=== PATIENT | male | born 1960 | race Caucasian/White ===

== ENCOUNTER 2018-12-08 18:20 | Emergency (ER) | payer BC, OTHER ==
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
[2018-12-08] MEDS ORDERED: HYDROCODONE/APAP 10/325 TAB ONE (19:12)
== END 2018-12-08 20:04 | disposition home or self-care (01) ==
LOC: ER 18:20
DX: T20.19XA Burn of first degree of multiple sites of head, face, and neck, initial encounter (principal); X08.8XXA Exposure to other specified smoke, fire and flames, initial encounter; Y93.9 Activity, unspecified; Y92.9 Unspecified place or not applicable; Z88.0 Allergy status to penicillin
CPT/HCPCS: 99283

== ENCOUNTER 2019-12-25 10:15 | Emergency (ER) | payer OTHER ==
[2019-12-25] MEDS ORDERED: NA CHLORIDE 0.9% 1,000 ML ONE (11:20)
[2019-12-25 11:22] LABS: Absolute Lymphocytes (CBC) 1.7 K/uL (0.7-4.9); Basophils % 0.3 % (0-1.3); Lymphocytes % 20.5 % (15.3-44.8); MPV 8.3 fL (7.6-11.3); RBC Red Blood Cell Count 4.72 M/uL (4.33-5.43)
--- NOTE | 2019-12-25 12:00 | RAD REPORT ---
EXAM DESCRIPTION: CT - Abdomen Pelvis W Contrast - 12/25/2019 11:35 am CLINICAL HISTORY: Abdominal pain COMPARISON: none. TECHNIQUE: Computed axial tomography of the abdomen pelvis was obtained. 100 cc Isovue-300 was admin istered intravenously. Oral contrast was not requested which limits evaluation of bowel. All CT scans are performed using dose optimization technique as appropriate and may include automated exposure control or mA/KV adjustment according to patient size. FINDINGS: Mild fatty liver Spleen, pancreas, adrenal and left kidney appear unremarkable. Mild mild malrotation right kidney Bladder is distended. Prostate gland is mildly enlarged There is no evidence of diverticulitis. Small umbilical hernia IMPRESSION: Bladder distention
[2019-12-25 12:26] LABS: Urine Blood 3+ (NEG); Urine Glucose TRACE (NEG); Urine Protein 2+ (NEG); Urine pH 6.5 (5.0-7.0)
[2019-12-25 12:34] LABS: Urine Bacteria 20-50 /HPF (NONE SEEN); Urine Culture Reflex Order REFLEXED; Urine RBC LOADED /HPF (NONE SEEN)
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
--- NOTE | 2019-12-25 13:09 | EDPHYS ---
Physician Documentation [facility] Name: Olu Ware Age: 59 yrs Sex: Male : 1960 Arrival Date: 12/25/2019 Time: 10:18 Bed 17 Private MD: ED Physician Meli Astudillo HPI: 12/24 13:49 This 59 yrs old Unknown Male presents to ER via Ambulatory with complaints of Urinary kb Problem - blood. 13:49 The patient presents with urinary symptoms, hematuria. Onset: The symptoms/episode kb began/occurred 3 week(s) ago. Modifying factors: The symptoms are alleviated by nothing, the symptoms are aggravated by nothing. Associated signs and symptoms: Pertinent positives: hematuria, Pertinent negatives: abdominal pain, constipation, diarrhea, dysuria, fever, nausea, vomiting. Severity of symptoms: At their worst the symptoms were moderate, in the emergency department the symptoms are unchanged. The patient has not experienced similar symptoms in the past. The patient has been recently seen by a physician:. Pt reports he had some cloudy, malodorous urine starting 3 weeks ago. Was diagnosed with a UTI and placed on a 5 day course of antibiotics. Urine started to clear, then he started noticing blood in urine. PCP put him on 14 day course of Cipro. He is on day 9 and symptoms seemed to be getting better until last night. Reports hematuria with clots and constant urge to urinate. Denies pain, fever. . Historical: - Allergies: 10:40 PENICILLINS; ca1 - Home Meds: 10:40 Glipizide Oral [Active]; metformin 750 mg Oral Tb24 1 tab twice a day [Active]; Cipro ca1 Oral [Active]; - PMHx: 10:40 Atrial Fib; Diabetes - NIDDM; Sleep Apnea; ca1 - PSHx: 10:40 None; ca1 - Immunization history:: Adult Immunizations up to date. - Social history:: Smoking status: Patient denies any tobacco usage or history of. ROS: 13:49 Constitutional: Negative for fever, chills, and weight loss, Cardiovascular: Negative kb for chest pain, palpitations, and edema, Respiratory: Negative for shortness of breath, cough, wheezing, and pleuritic chest pain, Abdomen/GI: Negative for abdominal pain, nausea, vomiting, diarrhea, and constipation, Back: Negative for injury and pain, MS/Extremity: Negative for injury and deformity, Skin: Negative for injury, rash, and discoloration, Neuro: Negative for headache, weakness, numbness, tingling, and seizure. 13:49 : Positive for hematuria. Exam: 13:49 Constitutional: This is a well developed, well nourished patient who is awake, alert, kb and in no acute distress. Head/Face: Normocephalic, atraumatic. Chest/axilla: Normal chest wall appearance and motion. Nontender with no deformity. No lesions are appreciated. Cardiovascular: Regular rate and rhythm with a normal S1 and S2. No gallops, murmurs, or rubs. Normal PMI, no JVD. No pulse deficits. Respiratory: Lungs have equal breath sounds bilaterally, clear to auscultation and percussion. No rales, rhonchi or wheezes noted. No increased work of breathing, no retractions or nasal flaring. Abdomen/GI: Soft, non-tender, with normal bowel sounds. No distension or tympany. No guarding or rebound. No evidence of tenderness throughout. Skin: Warm, dry with normal turgor. Normal color with no rashes, no lesions, and no evidence of cellulitis. MS/ Extremity: Pulses equal, no cyanosis. Neurovascular intact. Full, normal range of motion. Neuro: Awake and alert, GCS 15, oriented to person, place, time, and situation. Cranial nerves II-XII grossly intact. Motor strength 5/5 in all extremities. Sensory grossly intact. Cerebellar exam normal. Normal gait. Vital Signs: 10:35 BP 112 / 78; Pulse 84; Resp 16 S; Temp 97.5(TE); Pulse Ox 99% on R/A; Weight 94.8 kg ca1 (R); Height 5 ft. 11 in. (180.34 cm) (R); Pain 0/10; 11:50 BP 105 / 63; Pulse 70; Resp 16; Pulse Ox 96% ; bp 12:44 BP 107 / 69; Pulse 70; Resp 16; Pulse Ox 100% ; bp 13:40 BP 120 / 88; Pulse 72; Resp 16; Temp 97.5; Pulse Ox 99% ; bp 10:35 Body Mass Index 29.15 (94.80 kg, 180.34 cm) ca1 MDM: 10:50 Patient medically screened. kb 13:45 Data reviewed: vital signs, nurses notes. Data interpreted: Pulse oximetry: on room air kb is 99 %. Interpretation: normal. Counseling: I had a detailed discussion with the patient and/or guardian regarding: the historical points, exam findings, and any diagnostic results supporting the discharge/admit diagnosis, lab results, radiology results, the need for outpatient follow up, a urologist, to return to the emergency department if symptoms worsen or persist or if there are any questions or concerns that arise at home. ED course: Pt had 999+ PVR on bladder scan. Zavala placed and 1400ml tea colored urine drained. No clots or bright red blood noted. Discussed diagnostics and plan with pt. Pt agrees to leave zavala in and follow up with Dr Ibarra outpatient. . 12/24 10:42 Order name: Urine Microscopic Only; Complete Time: 12:37 kb 12/24 11:00 Order name: Urine Dipstick--Ancillary (enter results); Complete Time: 12:27 eb 12/24 11:01 Order name: Basic Metabolic Panel; Complete Time: 11:33 kb 12/24 11:01 Order name: CBC with Diff; Complete Time: 11:28 kb 12/24 12:01 Order name: CREATININE WHOLE BLOOD; Complete Time: 12:06 EDMS 12/24 12:38 Order name: Urine Culture EDMS 12/24 10:42 Order name: Urine Dipstick-Ancillary (obtain specimen); Complete Time: 11:00 kb 12/24 11:01 Order name: IV Saline Lock; Complete Time: 11:17 kb 12/24 11:01 Order name: Labs collected and sent; Complete Time: 11:17 kb 12/24 11:01 Order name: CT Abd/Pelvis - IV Contrast Only; Complete Time: 12:06 kb 12/24 12:06 Order name: Bladder Scanner: PVR; Complete Time: 12:33 kb 12/24 12:43 Order name: Zavala-Hematuria; Complete Time: 12:58 kb Administered Medications: 11:10 Drug: NS 0.9% 1000 ml Route: IV; Rate: 1000 ml; Site: left forearm; bp 13:41 Follow up: IV Status: Completed infusion; IV Intake: 1000ml bp 13:10 Drug: Rocephin 1 grams Route: IV; Rate: calculated rate; Site: left forearm; bp 13:41 Follow up: IV Status: Completed infusion; IV Intake: 20ml bp Disposition: 18:48 Co-signature as Attending Physician, Meli Astudillo MD. ma2 Disposition: 12/25/19 13:08 Discharged to Home. Impression: Urinary tract infection, site not specified, Retention of urine, Hematuria. - Condition is Stable. - Discharge Instructions: Hematuria, Adult, Urinary Tract Infection, Adult, [id number], Acute Urinary Retention, Male, [id number]. - Prescriptions for cefpodoxime 100 mg Oral Tablet - take 1 tablet by ORAL route every 12 hours for 10 days take with food; 20 tablet. - Medication Reconciliation Form, Thank You Letter, Antibiotic Education, Prescription Opioid Use form. - Follow up: Emergency Department; When: As needed; Reason: Worsening of condition. Follow up: Private Physician; When: 2 - 3 days; Reason: Recheck today's complaints, Continuance of care, Re-evaluation by your physician. Follow up: Ana Luisa Ibarra MD; When: 2 - 3 days; Reason: Recheck today's complaints, Continuance of care, Re-evaluation by your physician. Signatures: Dispatcher [employer] EDVanesa Recio, LEADITE HEATER-C LEADITE HEATER-Trey Mendiola RN RN Meli Mcginnis MD MD ma2 Lyssa Monreal RN RN ca1 Corrections: (The following items were deleted from the chart) 13:42 13:08 12/25/2019 13:08 Discharged to Home. Impression: Urinary tract infection, site bp not specified; Retention of urine; Hematuria. Condition is Stable. Forms are Medication Reconciliation Form, Thank You Letter, Antibiotic Education, Prescription Opioid Use. Follow up: Emergency Department; When: As needed; Reason: Worsening of condition. Follow up: Private Physician; When: 2 - 3 days; Reason: Recheck today's complaints, Continuance of care, Re-evaluation by your physician. Follow up: Ana Luisa Ibarra; When: 2 - 3 days; Reason: Recheck today's complaints, Continuance of care, Re-evaluation by your physician. kb
[2019-12-25] MEDS ORDERED: CEFTRIAXONE/SWI 1gm 1 GM/10 ML SYR ONE (13:13)
[2019-12-25 13:49] VITALS: TEMP 97.5
[2019-12-25 13:53] VITALS: BP 120/88; O2SAT 99
== END 2019-12-25 13:42 | disposition home or self-care (01) ==
LOC: ER 10:15
DX: N39.0 Urinary tract infection, site not specified (principal); R33.9 Retention of urine, unspecified; E11.9 Type 2 diabetes mellitus without complications; I48.91 Unspecified atrial fibrillation; Z88.0 Allergy status to penicillin
CPT/HCPCS: 96365; 96361; 85025; 87086; 80048; 36415; 82565; 74177; 51702; 99284; Q9967; J0696; J7030; 81003; 81015; 87088

== ENCOUNTER 2020-02-02 11:25 | Emergency (ER) | payer OTHER ==
--- OUTSIDE RECORDS SUMMARY | 2020-02-02 13:04 | XMS REPORT ---
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 Assessment Incomplete bladder emptying R33.9 Active Medications Medication Code Code Instructions Start End Status Dosage System Date Date Atorvastatin [facility] 28088696843 40 MG Orally Active 1 tablet Calcium Once a day Vascepa [facility] 88222194205 1 GM Orally Active 2 capsul es Twice a day with meals Glimepiride ND 95921687767 4 MG Orally Active 1 ta blet Once a day with breakfast or the first main meal of the day Cefpodoxime ND 26722626530 100 MG Orally Active 2 tablets Proxetil Twice a day with food Matzim LA [facility] 09576692169 180 MG Orally Active 1 ta blet Once a day MetFORMIN HCl [facility] 52847132739 750 MG Orally Active 1 tablet ER Once a day with evening meal Trulicity [facility] 24645810187 1.5 MG/0.5ML Active as di rected Subcutaneous Fenofibrate ND 74040474858 145 MG Orally Active 1 tablet Once a day with food Cosentyx [facility] 80216773847 150 MG/ML Active 1 ml Subcutaneous Amiodarone HCl ND 02707695760 100 MG Orally Active 1 tablet Once a day Results No Known Results Summary Purpose eClinicalWorks Submission
--- OUTSIDE RECORDS SUMMARY | 2020-02-02 13:04 | XMS REPORT | Continuity of Care Document ---
:1960 Author Organization [facility] t Address [address] [place] [address] Care Team Providers Name Role Phone Unavailable Unavailable Unavailable Problems Condition Condition Condition Status Onset Resolution Last Treating Co mments Source Name Details Category Date Date Treatment Clinician Date BPH with BPH with Problem Active [facility] - n/lower n/lower [facility] urinary urinary l tract tract Outpati symptoms symptoms ent Clinics Allergies, Adverse Reactions, Alerts Allergy Allergy Status Severity Reaction(s) Onset Inactive Treating Comm ents Source Name Type Date Date Clinician PCN Adverse Active Info Not [facility] Reaction Available [facility] Medications Ordered Filled Start Stop Current Ordering Indication Dosage Frequency Signature Comments Components Source Medication Medication Date Date Medication? Clinician (SIG) Name Name Bactrim DS Bactrim DS 2019- Yes Luz [address] [facility] 01-25 [facility] Procedures This patient has no known procedures. Encounters Start End Encounter Admission Attending Care Care Encounter Source Date/Time Date/Time Type Type Clinicians Facility Department ID 2020-01-26 2020-01-26 [facility] [id number] [facility] 15:27:00 15:27:00 t Specialty/U Marge kes - Specialty ro[facility]y [facility]Urology Clinic l Clinic Outpati ent Clinics 2020-01-18 2020-01-18 [facility] [id number] [facility] 13:32:00 13:32:00 t Specialty/U Marge kes - Specialty ro[facility]y [facility] /Urology Clinic l Clinic Outpati ent Clinics 2020-01-14 2020-01-14 Outpatient [facility] [id number] [facility] 14:30:00 14:30:00 t Specialty/U Marge kes - Special[facility]y [facility] 2020-01-11 2020-01-11 Outpatient [facility] [id number] [facility] 14:45:00 14:45:00 t Specialty/U Marge kes - Specialty rology [facility] /Urology Clinic l Clinic Outpati ent Clinics 2019-12-31 2019-12-31 Outpatient [facility] [id number] [facility] 09:15:00 09:15:00 t Specialty/U Marge kes - [facility] Results This patient has no known results.
--- OUTSIDE RECORDS SUMMARY | 2020-02-02 13:04 | XMS REPORT ---
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 Medications Medication Code Code Instructions Start End Status Dosage System Date Date Amiodarone HCl [facility] 48301372441 100 MG Orally Active 1 tablet Once a day MetFORMIN HCl [facility] 67858329070 750 MG Orally Active 1 tablet ER Once a day with evening meal Trulicity [facility] 60326244131 1.5 MG/0.5ML Active as di rected Subcutaneous Cosentyx [facility] 37978575823 150 MG/ML Active 1 ml Subcutaneous Atorvastatin [facility] 49273793182 40 MG Orally Active 1 tablet Calcium Once a day Glimepiride ND 54615556828 4 MG Orally Active 1 ta blet Once a day with breakfast or the first main meal of the day Vascepa [facility] 12000442624 1 GM Orally Active 2 capsul es Twice a day with meals Fenofibrate ND 94878800583 145 MG Orally Active 1 tablet Once a day with food Cefpodoxime ND 99619552831 100 MG Orally Active 2 tablets Proxetil Twice a day with food Matzim LA [facility] 87684925346 180 MG Orally Active 1 ta blet Once a day Results No Known Results Summary Purpose eClinicalWorks Submission
--- OUTSIDE RECORDS SUMMARY | 2020-02-02 13:05 | XMS REPORT ---
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
--- OUTSIDE RECORDS SUMMARY | 2020-02-02 13:05 | XMS REPORT ---
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
--- OUTSIDE RECORDS SUMMARY | 2020-02-02 13:05 | XMS REPORT ---
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 Medications Medication Code Code Instructions Start End Status Dosage System Date Date MetFORMIN HCl [facility] 37095682519 750 MG Orally Active 1 tablet ER Once a day with evening meal Amiodarone HCl [facility] 46003614142 100 MG Orally Active 1 tablet Once a day Glimepiride ND 58134481174 4 MG Orally Active 1 ta blet Once a day with breakfast or the first main meal of the day Cefpodoxime ND 79698092451 100 MG Orally Active 2 tablets Proxetil Twice a day with food Atorvastatin ND 85671199735 40 MG Orally Active 1 tablet Calcium Once a day Vascepa [facility] 84910394645 1 GM Orally Active 2 capsul es Twice a day with meals Trulicity [facility] 81331218060 1.5 MG/0.5ML Active as di rected Subcutaneous Matzim LA [facility] 12308314151 180 MG Orally Active 1 ta blet Once a day Cosentyx ND 99869819276 150 MG/ML Active 1 ml Subcutaneous Fenofibrate ND 38068493559 145 MG Orally Active 1 tablet Once a day with food Results No Known Results Summary Purpose eClinicalWorks Submission
[2020-02-02] MEDS ORDERED: ONDANSETRON 4 MG/2 ML VIAL ONE (13:32)
[2020-02-02] MEDS ORDERED: DICYCLOMINE HCL 10 MG CAP ONE (13:33)
[2020-02-02] MEDS ORDERED: NA CHLORIDE 0.9% 1,000 ML ONE (13:33)
[2020-02-02 13:46] LABS: Absolute Lymphocytes (CBC) 1.1 K/uL (0.7-4.9); Hematocrit 39.9 % (39.6-49.0); Lymphocytes % 11.6 % (15.3-44.8); MPV 7.4 fL (7.6-11.3); RBC Red Blood Cell Count 4.46 M/uL (4.33-5.43)
[2020-02-02 14:03] LABS: ALT/SGPT 22 U/L (12-78); AST/SGOT 20 U/L (15-37); Albumin 2.6 g/dL (3.4-5.0); Alkaline Phosphatase 60 U/L (45-117); BUN Blood Urea Nitrogen 10 mg/dL (7-18); Bicarbonate 30 mmol/L (21-32); Bilirubin Direct 0.1 mg/dL (0-0.2); Bilirubin Total 0.4 mg/dL (0.2-1.0); Glucose Level 261 mg/dL (74-106); Lipase 107 U/L (73-393); Potassium 4.1 mmol/L (3.5-5.1); Protein, Total 7.9 g/dL (6.4-8.2); Sodium Level 140 mmol/L (136-145)
--- NOTE | 2020-02-02 14:27 | RAD REPORT ---
EXAM DESCRIPTION: CTAbdomen Pelvis W Contrast - 02/02/2020 2:17 pm CLINICAL HISTORY: Abdominal pain. ABD PAIN COMPARISON: Abdomen Pelvis W Contrast dated 12/25/2019 TECHNIQUE: Biphasic CT imaging of the abdomen and pelvis was performed with 100 ml non-ionic IV cont rast. All CT scans are performed using dose optimization technique as appropriate and may include automated exposure control or mA/KV adjustment according to patient size. FINDINGS: Extensive interstitial opacities in the lung bases are present compatible with viral pneum onitis.Findings are most severe in the right lower lobe. The liver, spleen, pancreas, adrenal glands are within normal limits. No renal hydronephrosis or ston e. No bowel obstruction, free air, free fluid or abscess. The appendix is normal. No evidence of signi ficant lymphadenopathy. No suspicious bony findings. IMPRESSION: Extensive interstitial infiltrate in both lung bases, greater on the right, most compati ble with COVID-19 infection. No acute intra-abdominal or pelvic finding.
[2020-02-02 14:29] LABS: Urine Blood NEGATIVE (NEG); Urine Glucose 2+ (NEG); Urine Protein 2+ (NEG); Urine pH 5.5 (5.0-7.0)
[2020-02-02] MEDS ORDERED: dexAMETHasone 10 MG/ML VIAL ONE (15:22)
--- NOTE | 2020-02-02 15:24 | ER ---
Nurse's Notes [facility] Name: Olu Ware Age: 59 yrs Sex: Male : 1960 Arrival Date: 02/02/2020 Time: 11:30 Bed 26 Private MD: Diagnosis: Vomiting;Diarrhea, unspecified;COVID-19 Presentation: 02/01 11:55 Chief complaint: Patient states: Covid-19 positive. N/V/D since last week, worse past ca1 few days. Cough x 2 days. Denies SOB. 1st day fever-free yesterday. Coronavirus screen: Patient reports a cough. Patient denies shortness of breath or difficulty breathing. Patient reports a measured and/or subjective temperature greater than 100.4F. Patient denies travel on a cruise ship or to a country the [facility] currently lists as an affected area. Patient reports contact with known and/or suspected case of COVID-19. Patient was placed back in the lobby due to no available rooms at this time. Patient was instructed to always wear their mask and to isolate themselves as much as possible from others in the lobby. co-workers. Ebola Screen: Patient negative for fever greater than or equal to 101.5 degrees Fahrenheit, and additional compatible Ebola Virus Disease symptoms Patient denies exposure to infectious person. Patient denies travel to an Ebola-affected area in the 21 days before illness onset. No symptoms or risks identified at this time. Initial Sepsis Screen: Does the patient meet any 2 criteria? No. Patient's initial sepsis screen is negative. Does the patient have a suspected source of infection? No. Patient's initial sepsis screen is negative. Risk Assessment: Do you want to hurt yourself or someone else? Patient reports no desire to harm self or others. Onset of symptoms was February 02, 2020. 11:55 Method Of Arrival: Ambulatory ca1 11:55 Acuity: MACHO 3 ca1 Historical: - Allergies: 11:59 PENICILLINS; ca1 - Home Meds: 11:59 metformin 750 mg Oral Tb24 1 tab twice a day [Active]; Glipizide Oral [Active]; ca1 Amiodarone Oral [Active]; - PMHx: 11:59 Atrial Fib; Diabetes - NIDDM; Sleep Apnea; ca1 - PSHx: 11:59 None; ca1 - Immunization history:: Adult Immunizations up to date. - Social history:: Smoking status: Patient/guardian denies using tobacco, the patient reports quitting approximately 10 years ago. Screenin:03 Abuse screen: Denies threats or abuse. Nutritional screening: No deficits noted. em Tuberculosis screening: No symptoms or risk factors identified. Fall Risk None identified. Assessment: 13:00 General: Appears in no apparent distress. uncomfortable, ill, well groomed, well em developed, well nourished, Behavior is calm, cooperative, appropriate for age, Reports fever for > 3 days, fatigue for. Pain: Complains of pain in abdomen and body aches. Neuro: Level of Consciousness is awake, alert, obeys commands, Oriented to person, place, time, situation, Appropriate for age. Cardiovascular: Capillary refill < 3 seconds Patient's skin is warm and dry. Respiratory: Airway is patent Respiratory effort is even, unlabored, Respiratory pattern is regular, symmetrical. GI: Abdomen is flat, Reports diarrhea, nausea, vomiting. : Reports reports urinary retention for past 2-3 weeks, pt straight caths self q 5 hours. Derm: Skin is intact, is healthy with good turgor, Skin is pink, warm \T\ dry. Musculoskeletal: Capillary refill < 3 seconds, Range of motion: intact in all extremities. 14:00 Reassessment: Patient appears in no apparent distress at this time. Patient and/or em family updated on plan of care and expected duration. Pain level reassessed. Patient is alert, oriented x 3, equal unlabored respirations, skin warm/dry/pink. 15:00 Reassessment: Patient appears in no apparent distress at this time. Patient and/or em family updated on plan of care and expected duration. Pain level reassessed. Patient is alert, oriented x 3, equal unlabored respirations, skin warm/dry/pink. 16:01 Reassessment: Patient appears in no apparent distress at this time. Patient and/or em family updated on plan of care and expected duration. Pain level reassessed. Patient is alert, oriented x 3, equal unlabored respirations, skin warm/dry/pink. Patient states feeling better. Patient states symptoms have improved. Vital Signs: 11:55 BP 129 / 83; Pulse 92; Resp 18 S; Temp 97.4(TE); Pulse Ox 92% on R/A; Weight 95.25 kg ca1 (R); Height 5 ft. 11 in. (180.34 cm) (R); 14:58 BP 141 / 86; Pulse 75; Resp 20; Temp 98.8; Pulse Ox 92% on R/A; em 16:01 BP 129 / 73; Pulse 69; Resp 20; Pulse Ox 93% on R/A; em 11:55 Body Mass Index 29.29 (95.25 kg, 180.34 cm) ca1 ED Course: 11:30 Patient arrived in ED. fj1 11:58 Triage completed. ca1 11:59 Arm band placed on right wrist. ca1 12:59 Vanesa Simpson FNP-C is PHCP. kb 12:59 Kal Costello MD is Attending Physician. kb 13:03 Duran Barnett, KRYSTIAN is Primary Nurse. em 13:03 Patient has correct armband on for positive identification. Bed in low position. Call em light in reach. Side rails up X2. 14:17 CT Abd/Pelvis - IV Contrast Only In Process Unspecified. EDMS 16:00 No provider procedures requiring assistance completed. IV discontinued, intact, em bleeding controlled, No redness/swelling at site. Pressure dressing applied. Administered Medications: 13:35 Drug: Zofran (Ondansetron) 4 mg Route: IVP; Site: right forearm; em 13:48 Follow up: Response: No adverse reaction; Marked relief of symptoms; Nausea is decreasedem 13:39 Drug: NS 0.9% 1000 ml Route: IV; Rate: 1000 ml; Site: right forearm; em 15:04 Follow up: IV Status: Completed infusion; IV Intake: 1000ml em 13:49 Drug: Bentyl 20 mg Route: PO; em 15:04 Follow up: Response: No adverse reaction em 15:17 Drug: Decadron - Dexamethasone 10 mg Route: IVP; Site: right forearm; em 16:03 Follow up: Response: No adverse reaction em 15:27 Drug: Tussionex Pennkinetic ER 5 ml Route: PO; em 16:03 Follow up: Response: No adverse reaction; Marked relief of symptoms em Intake: 15:04 IV: 1000ml; Total: 1000ml. em Outcome: 15:23 Discharge ordered by . kb 16:02 Discharged to home ambulatory. em 16:02 Condition: good 16:02 Discharge instructions given to patient, Instructed on discharge instructions, follow up and referral plans. medication usage, Demonstrated understanding of instructions, follow-up care, medications, Prescriptions given X 4. 16:03 Patient left the ED. em Signatures: Dispatcher [employer] Vanesa Siegel, OTIS-C OTIS-Duran Garcia, RN RN Lyssa Beard RN RN Adan Wiggins fj1
--- NOTE | 2020-02-02 15:24 | EDPHYS ---
Physician Documentation [facility] Name: Olu Ware Age: 59 yrs Sex: Male : 1960 Arrival Date: 02/02/2020 Time: 11:30 Bed 26 Private MD: ED Physician Kal Costello HPI: 02/01 15:20 This 59 yrs old Unknown Male presents to ER via Ambulatory with complaints of kb Nausea/Vomiting, COVID POS. 15:20 The patient presents to the emergency department with nausea, vomiting, diarrhea. kb Onset: The symptoms/episode began/occurred 1 week(s) ago. Possible causes: unknown. The symptoms are aggravated by nothing. The symptoms are alleviated by nothing. Associated signs and symptoms: Pertinent positives: abdominal pain, diarrhea, nausea, vomiting. Severity of symptoms: At their worst the symptoms were moderate in the emergency department the symptoms are unchanged. The patient has not experienced similar symptoms in the past. The patient has not recently seen a physician. Pt reports n/v/d for a week. States he called his PCP and was told it was probably diverticulitis and prescribed cipro and flagyl. States symptoms have not improved. Reports he was tested for COVID as a screening at work, he had no symptoms at the time. Test came back positive. Historical: - Allergies: 11:59 PENICILLINS; ca1 - Home Meds: 11:59 metformin 750 mg Oral Tb24 1 tab twice a day [Active]; Glipizide Oral [Active]; ca1 Amiodarone Oral [Active]; - PMHx: 11:59 Atrial Fib; Diabetes - NIDDM; Sleep Apnea; ca1 - PSHx: 11:59 None; ca1 - Immunization history:: Adult Immunizations up to date. - Social history:: Smoking status: Patient/guardian denies using tobacco, the patient reports quitting approximately 10 years ago. ROS: 15:19 Constitutional: Negative for fever, chills, and weight loss, Cardiovascular: Negative kb for chest pain, palpitations, and edema, Back: Negative for injury and pain, : Negative for injury, bleeding, discharge, and swelling, MS/Extremity: Negative for injury and deformity, Skin: Negative for injury, rash, and discoloration, Neuro: Negative for headache, weakness, numbness, tingling, and seizure. 15:19 Respiratory: Positive for cough, Negative for dyspnea on exertion, hemoptysis, orthopnea, pleurisy, shortness of breath, sputum production, wheezing. 15:19 Abdomen/GI: Positive for abdominal pain, nausea, vomiting, and diarrhea, Negative for constipation, abdominal cramps, abdominal distension, anorexia. Exam: 15:19 Constitutional: This is a well developed, well nourished patient who is awake, alert, kb and in no acute distress. Head/Face: Normocephalic, atraumatic. Chest/axilla: Normal chest wall appearance and motion. Nontender with no deformity. No lesions are appreciated. Cardiovascular: Regular rate and rhythm with a normal S1 and S2. No gallops, murmurs, or rubs. Normal PMI, no JVD. No pulse deficits. Respiratory: Lungs have equal breath sounds bilaterally, clear to auscultation and percussion. No rales, rhonchi or wheezes noted. No increased work of breathing, no retractions or nasal flaring. Back: No spinal tenderness. No costovertebral tenderness. Full range of motion. Skin: Warm, dry with normal turgor. Normal color with no rashes, no lesions, and no evidence of cellulitis. MS/ Extremity: Pulses equal, no cyanosis. Neurovascular intact. Full, normal range of motion. Neuro: Awake and alert, GCS 15, oriented to person, place, time, and situation. Cranial nerves II-XII grossly intact. Motor strength 5/5 in all extremities. Sensory grossly intact. Cerebellar exam normal. Normal gait. 15:19 Abdomen/GI: Inspection: abdomen appears normal, Bowel sounds: normal, in all quadrants, Palpation: soft, in all quadrants, mild abdominal tenderness, in the right upper quadrant and left upper quadrant. Vital Signs: 11:55 BP 129 / 83; Pulse 92; Resp 18 S; Temp 97.4(TE); Pulse Ox 92% on R/A; Weight 95.25 kg ca1 (R); Height 5 ft. 11 in. (180.34 cm) (R); 14:58 BP 141 / 86; Pulse 75; Resp 20; Temp 98.8; Pulse Ox 92% on R/A; em 16:01 BP 129 / 73; Pulse 69; Resp 20; Pulse Ox 93% on R/A; em 11:55 Body Mass Index 29.29 (95.25 kg, 180.34 cm) ca1 MDM: 12:59 Patient medically screened. kb 15:16 Data reviewed: vital signs, nurses notes. Data interpreted: Pulse oximetry: on room air kb is 92 %. Interpretation: borderline. Counseling: I had a detailed discussion with the patient and/or guardian regarding: the historical points, exam findings, and any diagnostic results supporting the discharge/admit diagnosis, lab results, radiology results, the need for outpatient follow up, a family practitioner, to return to the emergency department if symptoms worsen or persist or if there are any questions or concerns that arise at home. ED course: Pt educated on diagnostic results. PT has no complaints of shortness of breath. Has been afebrile for over 24 hours. Will discharge with albuterol and decadron. Pt is on amiodarone so will not prescribe zithromax due to interaction. 02/01 13:20 Order name: Basic Metabolic Panel; Complete Time: 14:05 kb 02/01 13:20 Order name: CBC with Diff; Complete Time: 13:50 kb 02/01 13:20 Order name: Hepatic Function; Complete Time: 14:05 kb 02/01 13:20 Order name: Lipase; Complete Time: 14:05 kb 02/01 13:20 Order name: CT Abd/Pelvis - IV Contrast Only; Complete Time: 14:29 kb 02/01 13:33 Order name: Urine Dipstick--Ancillary (enter results); Complete Time: 14:47 bd 02/01 13:20 Order name: IV Saline Lock; Complete Time: 13:39 kb 02/01 13:20 Order name: Labs collected and sent; Complete Time: 13:39 kb Administered Medications: 13:35 Drug: Zofran (Ondansetron) 4 mg Route: IVP; Site: right forearm; em 13:48 Follow up: Response: No adverse reaction; Marked relief of symptoms; Nausea is decreasedem 13:39 Drug: NS 0.9% 1000 ml Route: IV; Rate: 1000 ml; Site: right forearm; em 15:04 Follow up: IV Status: Completed infusion; IV Intake: 1000ml em 13:49 Drug: Bentyl 20 mg Route: PO; em 15:04 Follow up: Response: No adverse reaction em 15:17 Drug: Decadron - Dexamethasone 10 mg Route: IVP; Site: right forearm; em 16:03 Follow up: Response: No adverse reaction em 15:27 Drug: Tussionex Pennkinetic ER 5 ml Route: PO; em 16:03 Follow up: Response: No adverse reaction; Marked relief of symptoms em Disposition: 17:51 Co-signature as Attending Physician, Kal Costello MD. rn Disposition: 02/02/20 15:23 Discharged to Home. Impression: Vomiting, Diarrhea, unspecified, COVID-19. - Condition is Stable. - Discharge Instructions: Food Choices to Help Relieve Diarrhea, Adult, Diarrhea, Adult, [id number], Viral Respiratory Infection, [id number], Viral Gastroenteritis, Child, COVID-19. - Prescriptions for dexamethasone 2 mg Oral tablet - take 1 tablet by ORAL route 3 times per day for 7 days; 21 tablet. Bentyl 20 mg Oral Tablet - take 1 tablet by ORAL route every 6 hours As needed; 20 tablet. Albuterol Sulfate 90 mcg/actuation - inhale 1-2 puff by INHALATION route every 4-6 hours; 1 Inhaler. promethazine 25 mg Oral Tablet - take 1 tablet by ORAL route every 8 hours As needed; 20 tablet. - Medication Reconciliation Form, Thank You Letter, Antibiotic Education, Prescription Opioid Use form. - Follow up: Emergency Department; When: As needed; Reason: Worsening of condition. Follow up: Private Physician; When: 2 - 3 days; Reason: Recheck today's complaints, Continuance of care, Re-evaluation by your physician. Signatures: Dispatcher [employer] Vanesa Siegel, OTIS-C [employer]ANCE WHEEL FACER-Duran Garcia, KRYSTIAN RN Kal Cavanaugh MD MD rn Rah, KRYSTIAN Omalley RN ca1 Corrections: (The following items were deleted from the chart) 16:03 15:23 02/02/2020 15:23 Discharged to Home. Impression: Vomiting; Diarrhea, unspecified; em COVID-19. Condition is Stable. Forms are Medication Reconciliation Form, Thank You Letter, Antibiotic Education, Prescription Opioid Use. Follow up: Emergency Department; When: As needed; Reason: Worsening of condition. Follow up: Private Physician; When: 2 - 3 days; Reason: Recheck today's complaints, Continuance of care, Re-evaluation by your physician. kb
[2020-02-02] MEDS ORDERED: HYDROCODONE/CHLORPHEN 5 ML/OSYR ONE (15:30)
[2020-02-03 05:41] VITALS: TEMP 98.8
[2020-02-03 05:42] VITALS: BP 129/73; O2SAT 93
== END 2020-02-02 16:03 | disposition home or self-care (01) ==
LOC: ER 11:25
DX: U07.1 COVID-19 (principal); R19.7 Diarrhea, unspecified; E11.9 Type 2 diabetes mellitus without complications; I48.91 Unspecified atrial fibrillation; Z88.0 Allergy status to penicillin
CPT/HCPCS: 96361; 85025; 80048; 36415; 80076; 81003; 83690; 74177; 96375; 96374; 99283; Q9967; J1100; J7030; J2405

== ENCOUNTER 2022-08-05 00:13 | Emergency (ER) | payer SELFPAY ==
--- OUTSIDE RECORDS SUMMARY | 2022-08-05 00:18 | XMS REPORT | Continuity of Care Document ---
:1960 Author Organization [facility] t Address [facility] [place] [address] Care Team Providers Name Role Phone VINITA JIMENEZ Primary Care Physician Unavailable Don Morales MD Attending Clinician DON MORALES Attending Clinician Unavailable DON MORALES Admitting Clinician Unavailable Payers Payer Name Policy Type Policy Number Effective Date Expiration Date [employer]iva josue [employer] 53 [id number] 2011 [facility] - 00:00:00 [facility] AETNA C1 [id number] [facility] Problems Condition Condition Condition Status Onset Resolution Last Treating Co mments Source Name Details Category Date Date Treatment Clinician Date No known No known Disease Unive rs active active ity of problems problems [facility] [id number] Lower Problem Active [facility] urinary [facility] tract [id number] Problem Active [facility] (erectile [facility] dysfunctio - [facility] n) of [facility] [id number] Epididymo- Problem Active Co mmon orchitis, [facility] acute - [facility] Lower BPH with Problem Active [facility] urinary obstructio Spiri t tract n/lower - [facility] symptoms urinary [facility] due [facility] hypertroph y [id number] Detrusor Problem Active Comm on dysfunctio Spirit n - [facility] [id number] OAB Problem Active [facility] (overactiv Spirit e bladder) - [facility] Allergies, Adverse Reactions, Alerts Allergy Allergy Status Severity Reaction(s) Onset Inactive Treating Comm ents Source Name Type Date Date Clinician Penicill Propensi Active Other - See Childhoo d [facility] in ty to comments 01-28 Allergy ity of adverse 00:00: [place] reaction [address] [place] [address] s Branch PENICILL DRUG Active Other-Cmnt Univ ers IN INGREDI 01-28 ity of 00:00: [address] NO KNOWN Drug Active Univers ALLERGIE Class ity of [facility] Social History Social Habit Start Date Stop Date Quantity Comments Source Sex Assigned At [facility] - [facility] History of Tobacco [facility] - [facility] Use [facility] Exposure to 2022-01-18 2022-01-28 Not sure [facility] SARS-CoV-2 (event) 00:00[facility]00 [facility] Sm[facility] Status Start Date Stop Date Source Tobacco [facility] Medications Ordered Filled Start Stop Current Ordering Indication Dosage Frequency Signature Comments Components Source Medication Medication Date Date Medication? Clinician (SIG) Name Name Ciprofloxac Ciprofloxac 2021- No 1{table BID Ciprofloxa in HCl 500 in HCl 500 8-17 08-31 t} dmitriy HCl MG MG 00:00: 00:00 500 MG 00 :00 Cialis 5 MG Cialis 5 MG 2022- No 1{table QD Cialis 5 -15 t_as_ne MG 00:00: 00:00 eded} 00 :00 Cialis 5 MG Cialis 5 MG 2022- No 1{table QD Cialis 5 7-03 09-15 t_as_ne MG 00:00: 00:00 eded} 00 :00 Cialis 5 MG Cialis 5 MG 2022- No 1{table QD Cialis 5 01-31 t_as_ne MG 00:00: 00:00 eded} 00 :00 Cialis 5 MG Cialis 5 MG 2022- No 1{table QD Cialis 5 01-31 t_as_ne MG 00:00: 00:00 eded} 00 :00 amiodarone 2021- No 150mg 150 mg, IV Univers (CORDARONE) 01-29 Piggyback, i ty of injection 00:15: 00:15 ONCE, [place] 150 mg 00 :00 dose, On [facility] 01/28/22 at 1915, STAT amiodarone Yes [id number] 200mg Take 1 Univers 200 mg 01-28 [id number] tablet by ity of tablet 00:00: mouth in [place] 00 the Medical morning. Branch Bactrim DS Bactrim DS 2020- No Luz 1 tablet Common 01-25 [facility] 00:00: 00:00 - [facility] 00 :00 [facility] Cosentyx Cosentyx No 1{ml} Cosentyx 150 MG/ML 150 MG/ML 150 MG/ML Vascepa 1 Vascepa 1 No 2{capsu BID Vascepa 1 GM GM les_wit GM h_meals } Atorvastati Atorvastati No 1{table QD Atorvastat n Calcium n Calcium t} in Calcium 40 MG 40 MG 40 MG Amiodarone Amiodarone No 1{table QD Amiodarone HCl 100 MG HCl 100 MG t} HCl 100 MG Trulicity Trulicity No Trulicity 1.5 1.5 1.5 MG/0.5ML MG/0.5ML MG/0.5ML metFORMIN metFORMIN No 1{table QD metFORMIN HCl ER 750 HCl ER 750 t_with_ HCl ER 750 MG MG evening MG _meal} Cefpodoxime Cefpodoxime No 2{table BID Cefpodoxim Proxetil Proxetil ts_with e Proxetil 100 MG 100 MG _food} 100 MG Fenofibrate Fenofibrate No 1{table QD Fenofibrat 145 MG 145 MG t_with_ e 145 MG food} Glimepiride Glimepiride No 1{table QD Glimepirid 4 MG 4 MG t_with_ e [address]_or_t he_firs t_main_ meal_of _the_da y} Matzim [place] Geovanyzim [place] No 1{table QD Mat[place]im [place] 180 MG 180 MG t} 180 MG Cosentyx Cosentyx No 1{ml} Cosentyx 150 MG/ML 150 MG/ML 150 MG/ML Vascepa 1 Vascepa 1 No 2{capsu BID Vascepa 1 GM GM les_wit GM h_meals } Atorvastati Atorvastati No 1{table QD Atorvastat n Calcium n Calcium t} in Calcium 40 MG 40 MG 40 MG Amiodarone Amiodarone No 1{table QD Amiodarone HCl 100 MG HCl 100 MG t} HCl 100 MG Trulicity Trulicity No Trulicity 1.5 1.5 1.5 MG/0.5ML MG/0.5ML MG/0.5ML metFORMIN metFORMIN No 1{table QD metFORMIN HCl ER 750 HCl ER 750 t_with_ HCl ER 750 MG MG evening MG _meal} Cefpodoxime Cefpodoxime No 2{table BID Cefpodoxim Proxetil Proxetil ts_with e Proxetil 100 MG 100 MG _food} 100 MG Fenofibrate Fenofibrate No 1{table QD Fenofibrat 145 MG 145 MG t_with_ e 145 MG food} Glimepiride Glimepiride No 1{table QD Glimepirid 4 MG 4 MG t_with_ e [address]_or_t he_firs t_main_ meal_of _the_da y} Matzim LA Matzim LA No 1{table QD Matzim [place] 180 MG 180 MG t} 180 MG Cosentyx Cosentyx No 1{ml} Cosentyx 150 MG/ML 150 MG/ML 150 MG/ML Vascepa 1 Vascepa 1 No 2{capsu BID Vascepa 1 GM GM les_wit GM h_meals } Atorvastati Atorvastati No 1{table QD Atorvastat n Calcium n Calcium t} in Calcium 40 MG 40 MG 40 MG Amiodarone Amiodarone No 1{table QD Amiodarone HCl 100 MG HCl 100 MG t} HCl 100 MG Trulicity Trulicity No Trulicity 1.5 1.5 1.5 MG/0.5ML MG/0.5ML MG/0.5ML metFORMIN metFORMIN No 1{table QD metFORMIN HCl ER 750 HCl ER 750 t_with_ HCl ER 750 MG MG evening MG _meal} Cefpodoxime Cefpodoxime No 2{table BID Cefpodoxim Proxetil Proxetil ts_with e Proxetil 100 MG 100 MG _food} 100 MG Fenofibrate Fenofibrate No 1{table QD Fenofibrat 145 MG 145 MG t_with_ e 145 MG food} Glimepiride Glimepiride No 1{table QD Glimepirid 4 MG 4 MG t_with_ e [address]_or_t he_firs t_main_ meal_of _the_da y} Matzim LA Matzim LA No 1{table QD Matzim [place] 180 MG 180 MG t} 180 MG Cosentyx Cosentyx No 1{ml} Cosentyx 150 MG/ML 150 MG/ML 150 MG/ML Vascepa 1 Vascepa 1 No 2{capsu BID Vascepa 1 GM GM les_wit GM h_meals } Atorvastati Atorvastati No 1{table QD Atorvastat n Calcium n Calcium t} in Calcium 40 MG 40 MG 40 MG Amiodarone Amiodarone No 1{table QD Amiodarone HCl 100 MG HCl 100 MG t} HCl [facility] Trulicity No Trulicity 1.5 1.5 1.5 MG/0.5ML MG/0.5ML MG/0.5ML metFORMIN metFORMIN No 1{table QD metFORMIN HCl ER 750 HCl ER 750 t_with_ HCl ER 750 MG MG evening MG _meal} Cefpodoxime Cefpodoxime No 2{table BID Cefpodoxim Proxetil Proxetil ts_with e Proxetil 100 MG 100 MG _food} 100 MG Fenofibrate Fenofibrate No 1{table QD Fenofibrat 145 MG 145 MG t_with_ e 145 MG food} Glimepiride Glimepiride No 1{table QD Glimepirid 4 MG 4 MG t_with_ e [address]_or_t he_firs t_main_ meal_of _the_da y} Matzim LA Matzim LA No 1{table QD Mat[place]im [place] 180 MG 180 MG t} 180 MG Cosentyx Cosentyx No 1{ml} Cosentyx 150 MG/ML 150 MG/ML 150 MG/ML Vascepa 1 Vascepa 1 No 2{capsu BID Vascepa 1 GM GM les_wit GM h_meals } Atorvastati Atorvastati No 1{table QD Atorvastat n Calcium n Calcium t} in Calcium 40 MG 40 MG 40 MG Amiodarone Amiodarone No 1{table QD Amiodarone HCl 100 MG HCl 100 MG t} HCl 100 MG Trulicity Trulicity No Trulicity 1.5 1.5 1.5 MG/0.5ML MG/0.5ML MG/0.5ML metFORMIN metFORMIN No 1{table QD metFORMIN HCl ER 750 HCl ER 750 t_with_ HCl ER 750 MG MG evening MG _meal} Cefpodoxime Cefpodoxime No 2{table BID Cefpodoxim Proxetil Proxetil ts_with e Proxetil 100 MG 100 MG _food} 100 MG Fenofibrate Fenofibrate No 1{table QD Fenofibrat 145 MG 145 MG t_with_ e 145 MG food} Glimepiride Glimepiride No 1{table QD Glimepirid 4 MG 4 MG t_with_ e [address]_or_t he_firs t_main_ meal_of _the_da y} Matzim LA Matzim LA No 1{table QD Mat[place]im [place] 180 MG 180 MG t} 180 MG Cosentyx Cosentyx No 1{ml} Cosentyx 150 MG/ML 150 MG/ML 150 MG/ML Vascepa 1 Vascepa 1 No 2{capsu BID Vascepa 1 GM GM les_wit GM h_meals } Atorvastati Atorvastati No 1{table QD Atorvastat n Calcium n Calcium t} in Calcium 40 MG 40 MG 40 MG Amiodarone Amiodarone No 1{table QD Amiodarone HCl 100 MG HCl 100 MG t} HCl 100 MG Trulicity Trulicity No Trulicity 1.5 1.5 1.5 MG/0.5ML MG/0.5ML MG/0.5ML metFORMIN metFORMIN No 1{table QD metFORMIN HCl ER 750 HCl ER 750 t_with_ HCl ER 750 MG MG evening MG _meal} Cefpodoxime Cefpodoxime No 2{table BID Cefpodoxim Proxetil Proxetil ts_with e Proxetil 100 MG 100 MG _food} 100 MG Fenofibrate Fenofibrate No 1{table QD Fenofibrat 145 MG 145 MG t_with_ e 145 MG food} Glimepiride Glimepiride No 1{table QD Glimepirid 4 MG 4 MG t_with_ e [address]_or_t he_firs t_main_ meal_of _theda y} Teresa MAHMOOD No 1{table QD Matzim [place] 180 MG 180 MG t} 180 MG Cosentyx Cosentyx No 1{ml} Cosentyx 150 MG/ML 150 MG/ML 150 MG/ML Vascepa 1 Vascepa 1 No 2{capsu BID Vascepa 1 GM GM les_wit GM h_meals } Atorvastati Atorvastati No 1{table QD Atorvastat n Calcium n Calcium t} in Calcium 40 MG 40 MG 40 MG Amiodarone Amiodarone No 1{table QD Amiodarone HCl 100 MG HCl 100 MG t} HCl 100 MG Trulicity Trulicity No Trulicity 1.5 1.5 1.5 MG/0.5ML MG/0.5ML MG/0.5ML metFORMIN metFORMIN No 1{table QD metFORMIN HCl ER 750 HCl ER 750 t_with_ HCl ER 750 MG MG evening MG _meal} Cefpodoxime Cefpodoxime No 2{table BID Cefpodoxim Proxetil Proxetil ts_with e Proxetil 100 MG 100 MG _food} 100 MG Fenofibrate Fenofibrate No 1{table QD Fenofibrat 145 MG 145 MG t_with_ e 145 MG food} Glimepiride Glimepiride No 1{table QD Glimepirid 4 MG 4 MG t_with_ e [address]_or_t he_firs t_main_ meal_of _theda y} Matzim LA Matzim LA No 1{table QD Mat[place]im [place] 180 MG 180 MG t} 180 MG Cosentyx Cosentyx No 1{ml} Cosentyx 150 MG/ML 150 MG/ML 150 MG/ML Vascepa 1 Vascepa 1 No 2{capsu BID Vascepa 1 GM GM les_wit GM h_meals } Atorvastati Atorvastati No 1{table QD Atorvastat n Calcium n Calcium t} in Calcium 40 MG 40 MG 40 MG Amiodarone Amiodarone No 1{table QD Amiodarone HCl 100 MG HCl 100 MG t} HCl 100 MG Trulicity Trulicity No Trulicity 1.5 1.5 1.5 MG/0.5ML MG/0.5ML MG/0.5ML metFORMIN metFORMIN No 1{table QD metFORMIN HCl ER 750 HCl ER 750 t_with_ HCl ER 750 MG MG evening MG _meal} Cefpodoxime Cefpodoxime No 2{table BID Cefpodoxim Proxetil Proxetil ts_with e Proxetil 100 MG 100 MG _food} 100 MG Fenofibrate Fenofibrate No 1{table QD Fenofibrat 145 MG 145 MG t_with_ e 145 MG food} Glimepiride Glimepiride No 1{table QD Glimepirid 4 MG 4 MG t_with_ e [address]_or_t he_firs t_main_ meal_of _the_da y} Matzim LA Matzim LA No 1{table QD Mat[place]im [place] 180 MG 180 MG t} 180 MG Cosentyx Cosentyx No 1{ml} Cosentyx 150 MG/ML 150 MG/ML 150 MG/ML Vascepa 1 Vascepa 1 No 2{capsu BID Vascepa 1 GM GM les_wit GM h_meals } Atorvastati Atorvastati No 1{table QD Atorvastat n Calcium n Calcium t} in Calcium 40 MG 40 MG 40 MG Amiodarone Amiodarone No 1{table QD Amiodarone HCl 100 MG HCl 100 MG t} HCl 100 MG Trulicity Trulicity No Trulicity 1.5 1.5 1.5 MG/0.5ML MG/0.5ML MG/0.5ML metFORMIN metFORMIN No 1{table QD metFORMIN HCl ER 750 HCl ER 750 t_with_ HCl ER 750 MG MG evening MG _meal} Cefpodoxime Cefpodoxime No 2{table BID Cefpodoxim Proxetil Proxetil ts_with e Proxetil 100 MG 100 MG _food} 100 MG Fenofibrate Fenofibrate No 1{table QD Fenofibrat 145 MG 145 MG t_with_ e 145 MG food} Glimepiride Glimepiride No 1{table QD Glimepirid 4 MG 4 MG t_with_ e [address]_or_t he_firs t_main_ meal_of _the_da y} Matzim LA Matzim LA No 1{table QD [place]im [place] 180 MG 180 MG t} 180 MG Cosentyx Cosentyx No 1{ml} Cosentyx 150 MG/ML 150 MG/ML 150 MG/ML Vascepa 1 Vascepa 1 No 2{capsu BID Vascepa 1 GM GM les_wit GM h_meals } Atorvastati Atorvastati No 1{table QD Atorvastat n Calcium n Calcium t} in Calcium 40 MG 40 MG 40 MG Amiodarone Amiodarone No 1{table QD Amiodarone HCl 100 MG HCl 100 MG t} HCl 100 MG Trulicity Trulicity No Trulicity 1.5 1.5 1.5 MG/0.5ML MG/0.5ML MG/0.5ML metFORMIN metFORMIN No 1{table QD metFORMIN HCl ER 750 HCl ER 750 t_with_ HCl ER 750 MG MG evening MG _meal} Cefpodoxime Cefpodoxime No 2{table BID Cefpodoxim Proxetil Proxetil ts_with e Proxetil 100 MG 100 MG _food} 100 MG Fenofibrate Fenofibrate No 1{table QD Fenofibrat 145 MG 145 MG t_with_ e 145 MG food} Glimepiride Glimepiride No 1{table QD Glimepirid 4 MG 4 MG t_with_ e [address]_or_t he_firs t_main_ meal_of _theda y} Matzim LA Matzim LA No 1{table QD Mat[place]im [place] 180 MG 180 MG t} 180 MG Cosentyx Cosentyx No 1{ml} Cosentyx 150 MG/ML 150 MG/ML 150 MG/ML Vascepa 1 Vascepa 1 No 2{capsu BID Vascepa 1 GM GM les_wit GM h_meals } Atorvastati Atorvastati No 1{table QD Atorvastat n Calcium n Calcium t} in Calcium 40 MG 40 MG 40 MG Amiodarone Amiodarone No 1{table QD Amiodarone HCl 100 MG HCl 100 MG t} HCl 100 MG Trulicity Trulicity No Trulicity 1.5 1.5 1.5 MG/0.5ML MG/0.5ML MG/0.5ML metFORMIN metFORMIN No 1{table QD metFORMIN HCl ER 750 HCl ER 750 t_with_ HCl ER 750 MG MG evening MG _meal} Cefpodoxime Cefpodoxime No 2{table BID Cefpodoxim Proxetil Proxetil ts_with e Proxetil 100 MG 100 MG _food} 100 MG Fenofibrate Fenofibrate No 1{table QD Fenofibrat 145 MG 145 MG t_with_ e 145 MG food} Glimepiride Glimepiride No 1{table QD Glimepirid 4 MG 4 MG t_with_ e [address]_or_t he_firs t_main_ meal_of _the_da y} Matzim LA Matzim LA No 1{table QD Matzim LA 180 MG 180 MG t} 180 MG Trulicity Trulicity No Trulicity 1.5 1.5 1.5 MG/0.5ML MG/0.5ML MG/0.5ML Fenofibrate Fenofibrate No 1{table QD Fenofibrat 145 MG 145 MG t_with_ e 145 MG food} Cefpodoxime Cefpodoxime No 2{table BID Cefpodoxim Proxetil Proxetil ts_with e Proxetil 100 MG 100 MG _food} 100 MG Synjardy Synjardy No 1{table BID Synjardy 5-1000 MG 5-1000 MG t_with_ 5-1000 MG meals} Atorvastati Atorvastati No 1{table QD Atorvastat n Calcium n Calcium t} in Calcium 40 MG 40 MG 40 MG Amiodarone Amiodarone No 1{table QD Amiodarone HCl 200 MG HCl 200 MG t} HCl 200 MG Vascepa 1 Vascepa 1 No 2{capsu BID Vascepa 1 GM GM les_wit GM h_meals } Glimepiride Glimepiride No 1{table QD Glimepirid 4 MG 4 MG t_with_ e [address]_or_t he_firs t_main_ meal_of _the_da y} Cosentyx Cosentyx No 1{ml} Cosentyx 150 MG/ML 150 MG/ML 150 MG/ML Matzim LA Matzim LA No 1{table QD Matzim LA 180 MG 180 MG t} 180 MG Trulicity Trulicity No Trulicity 1.5 1.5 1.5 MG/0.5ML MG/0.5ML MG/0.5ML Fenofibrate Fenofibrate No 1{table QD Fenofibrat 145 MG 145 MG t_with_ e 145 MG food} Cefpodoxime Cefpodoxime No 2{table BID Cefpodoxim Proxetil Proxetil ts_with e Proxetil 100 MG 100 MG _food} 100 MG Synjardy Synjardy No 1{table BID Synjardy 5-1000 MG 5-1000 MG t_with_ 5-1000 MG meals} Atorvastati Atorvastati No 1{table QD Atorvastat n Calcium n Calcium t} in Calcium 40 MG 40 MG 40 MG Amiodarone Amiodarone No 1{table QD Amiodarone HCl 200 MG HCl 200 MG t} HCl 200 MG Vascepa 1 Vascepa 1 No 2{capsu BID Vascepa 1 GM GM les_wit GM h_meals } Glimepiride Glimepiride No 1{table QD Glimepirid 4 MG 4 MG t_with_ e [address]_or_t he_firs t_main_ meal_of _the_da y} Cosentyx Cosentyx No 1{ml} Cosentyx 150 MG/ML 150 MG/ML 150 MG/ML Matzim LA Matzim LA No 1{table QD Matzim LA 180 MG 180 MG t} 180 MG Trulicity Trulicity No Trulicity 1.5 1.5 1.5 MG/0.5ML MG/0.5ML MG/0.5ML Fenofibrate Fenofibrate No 1{table QD Fenofibrat 145 MG 145 MG t_with_ e 145 MG food} Cefpodoxime Cefpodoxime No 2{table BID Cefpodoxim Proxetil Proxetil ts_with e Proxetil 100 MG 100 MG _food} 100 MG Synjardy Synjardy No 1{table BID Synjardy 5-1000 MG 5-1000 MG t_with_ 5-1000 MG meals} Atorvastati Atorvastati No 1{table QD Atorvastat n Calcium n Calcium t} in Calcium 40 MG 40 MG 40 MG Amiodarone Amiodarone No 1{table QD Amiodarone HCl 200 MG HCl 200 MG t} HCl 200 MG Vascepa 1 Vascepa 1 No 2{capsu BID Vascepa 1 GM GM les_wit GM h_meals } Glimepiride Glimepiride No 1{table QD Glimepirid 4 MG 4 MG t_with_ e [address]_or_t he_firs t_main_ meal_of _the_da y} Cosentyx Cosentyx No 1{ml} Cosentyx 150 MG/ML 150 MG/ML 150 MG/ML Matzim LA Matzim LA No 1{table QD Mat[place]im LA 180 MG 180 MG t} 180 MG Matzim LA Matzim LA No 1{table QD [place]im [place] 180 MG 180 MG t} 180 MG Cosentyx Cosentyx No 1{ml} Cosentyx 150 MG/ML 150 MG/ML 150 MG/ML Glimepiride Glimepiride No 1{table QD Glimepirid 4 MG 4 MG t_with_ e [address]_or_t he_firs t_main_ meal_of _the_da y} Trulicity Trulicity No Trulicity 1.5 1.5 1.5 MG/0.5ML MG/0.5ML MG/0.5ML Cefpodoxime Cefpodoxime No 2{table BID Cefpodoxim Proxetil Proxetil ts_with e Proxetil 100 MG 100 MG _food} 100 MG Amiodarone Amiodarone No 1{table QD Amiodarone HCl 200 MG HCl 200 MG t} HCl 200 MG Synjardy Synjardy No 1{table BID Synjardy 5-1000 MG 5-1000 MG t_with_ 5-1000 MG meals} Vascepa 1 Vascepa 1 No 2{capsu BID Vascepa 1 GM GM les_wit GM h_meals } Fenofibrate Fenofibrate No 1{table QD Fenofibrat 145 MG 145 MG t_with_ e 145 MG food} Aspirin 81 Aspirin 81 No 1{table QD Aspirin 81 81 MG 81 MG t} 81 MG Atorvastati Atorvastati No 1{table QD Atorvastat n Calcium n Calcium t} in Calcium 40 MG 40 MG 40 MG Cosentyx Cosentyx No 1{ml} Cosentyx 150 MG/ML 150 MG/ML 150 MG/ML metFORMIN metFORMIN No 1{table QD metFORMIN HCl ER 750 HCl ER 750 t_with_ HCl ER 750 MG MG evening MG _meal} Atorvastati Atorvastati No 1{table QD Atorvastat n Calcium n Calcium t} in Calcium 40 MG 40 MG 40 MG Glimepiride Glimepiride No 1{table QD Glimepirid 4 MG 4 MG t_with_ e [address]_or_t he_firs t_main_ meal_of _the_da y} Trulicity Trulicity No Trulicity 1.5 1.5 1.5 MG/0.5ML MG/0.5ML MG/0.5ML Fenofibrate Fenofibrate No 1{table QD Fenofibrat 145 MG 145 MG t_with_ e 145 MG food} Matzim LA Matzim LA No 1{table QD Matzim LA 180 MG 180 MG t} 180 MG Cefpodoxime Cefpodoxime No 2{table BID Cefpodoxim Proxetil Proxetil ts_with e Proxetil 100 MG 100 MG _food} 100 MG Amiodarone Amiodarone No 1{table QD Amiodarone HCl 100 MG HCl 100 MG t} HCl 100 MG Vascepa 1 Vascepa 1 No 2{capsu BID Vascepa 1 GM GM les_wit GM h_meals } Vascepa 1 Vascepa 1 No 2{capsu BID Vascepa 1 GM GM les_wit GM h_meals } Atorvastati Atorvastati No 1{table QD Atorvastat n Calcium n Calcium t} in Calcium 40 MG 40 MG 40 MG metFORMIN metFORMIN No 1{table QD metFORMIN HCl ER 750 HCl ER 750 t_with_ HCl ER 750 MG MG evening MG _meal} Trulicity Trulicity No Trulicity 1.5 1.5 1.5 MG/0.5ML MG/0.5ML MG/0.5ML Glimepiride Glimepiride No 1{table QD Glimepirid 4 MG 4 MG t_with_ e [address]_or_t he_firs t_main_ meal_of _the_da y} Matzim LA Matzim LA No 1{table QD [place]im [place] 180 MG 180 MG t} 180 MG Cosentyx Cosentyx No 1{ml} Cosentyx 150 MG/ML 150 MG/ML 150 MG/ML Fenofibrate Fenofibrate No 1{table QD Fenofibrat 145 MG 145 MG t_with_ e 145 MG food} Cefpodoxime Cefpodoxime No 2{table BID Cefpodoxim Proxetil Proxetil ts_with e Proxetil 100 MG 100 MG _food} 100 MG Amiodarone Amiodarone No 1{table QD Amiodarone HCl 100 MG HCl 100 MG t} HCl 100 MG Vascepa 1 Vascepa 1 No 2{capsu BID Vascepa 1 GM GM les_wit GM h_meals } Atorvastati Atorvastati No 1{table QD Atorvastat n Calcium n Calcium t} in Calcium 40 MG 40 MG 40 MG metFORMIN metFORMIN No 1{table QD metFORMIN HCl ER 750 HCl ER 750 t_with_ HCl ER 750 MG MG evening MG _meal} Trulicity Trulicity No Trulicity 1.5 1.5 1.5 MG/0.5ML MG/0.5ML MG/0.5ML Glimepiride Glimepiride No 1{table QD Glimepirid 4 MG 4 MG t_with_ e [address]_or_t he_firs t_main_ meal_of _the_da y} Matzim LA Matzim LA No 1{table QD Mat[place]im [place] 180 MG 180 MG t} 180 MG Cosentyx Cosentyx No 1{ml} Cosentyx 150 MG/ML 150 MG/ML 150 MG/ML Fenofibrate Fenofibrate No 1{table QD Fenofibrat 145 MG 145 MG t_with_ e 145 MG food} Cefpodoxime Cefpodoxime No 2{table BID Cefpodoxim Proxetil Proxetil ts_with e Proxetil 100 MG 100 MG _food} 100 MG Amiodarone Amiodarone No 1{table QD Amiodarone HCl 100 MG HCl 100 MG t} HCl 100 MG Vital Signs Vital Name Observation Time Observation Value Comments Source height 2022-02-28 08:30:00 71 [in_i] [facility] weight 2022-02-28 08:30:00 218 [lb_av] [facility] temperature 2022-02-28 08:30:00 97.6 [degF] [facility] bmi 2022-02-28 08:30:00 30.4 kg/m2 [facility] oximetry 2022-02-28 08:30:00 98 % [facility] respiratory rate 2022-02-28 08:30:00 16 /min [facility] blood pressure 2022-02-28 08:30:00 125 mm[Hg] [facility] [place] [facility] blood pressure 2022-02-28 08:30:00 70 mm[Hg] [facility] [place] [facility] Heart rate 2022-01-29 02:30:00 80 /min [facility] Respiratory rate 2022-01-29 02:30:00 13 /min [facility] Oxygen saturation in 2022-01-29 02:30:00 97 /min [facility] Arterial blood by [facility] Pulse oximetry Branch Systolic blood 2022-01-29 02:15:00 106 mm[Hg] [facility] Diastolic blood 2022-01-29 02:15:00 75 [facility]Hg[facility] 2022-01-28 23:40:00 36.17 [facility] Body height 2022-01-28 23:40:00 180.3 cm [facility] Body weight 2022-01-28 23:40:00 97.523 kg [facility] BMI 2022-01-28 23:40:00 29.99 kg/m2 [facility] height 2021-06-05 14:00:00 71 [in_i] [facility] weight 2021-06-05 14:00:00 225.2 [lb_av] [facility] temperature 2021-06-05 14:00:00 97.2 [degF] [facility] bmi 2021-06-05 14:00:00 31.41 kg/m2 [facility] oximetry 2021-06-05 14:00:00 94 % [facility] blood pressure 2021-06-05 14:00:00 120 mm[Hg] [facility] blood pressure 2021-06-05 14:00:00 73 mm[Hg] [facility] height 2021-04-04 14:40:00 71 [in_i] [facility] weight 2021-04-04 14:40:00 185 [lb_av] [facility] temperature 2021-04-04 14:40:00 96.5 [degF] [facility] bmi 2021-04-04 14:40:00 25.8 kg/m2 [facility] oximetry 2021-04-04 14:40:00 93 % [facility] blood pressure 2021-04-04 14:40:00 124 mm[Hg] [facility] blood pressure 2021-04-04 14:40:00 68 mm[Hg] [facility] diastolic [facility] Procedures Procedure Date / Time Performing Clinician Source Performed EKG-12 LEAD 2022-01-29 02:27:40 Don Morales [facility] XR CHEST 1 VW 2022-01-29 00:47:21 Don Morales [facility] COVID-19 (ID NOW RAPID 2022-01-29 00:02:00 Don Morales [facility] TESTING) Medical Branch TROPONIN I 2022-01-29 00:00:00 Don Morales [facility] THYROID STIMULATING 2022-01-29 00:00:00 Don Morales [facility] HORMONE [facility] COMP. METABOLIC PANEL 2022-01-29 00:00:00 Don Morales [facility] ([id number]) Medical Branch CBC WITH DIFF 2022-01-29 00:00:00 Don Morales [facility] PROTHROMBIN TIME / INR 2022-01-29 00:00:00 Don Morales [facility] N-TERMINAL PRO-BNP 2022-01-29 00:00:00 Don Morales [facility] NOTICE OF PRIVACY 2022-01-28 23:35:33 Doctor Unassigned, No [facility] PRACTICES Name Medical Branch CONSENT/REFUSAL FOR 2022-01-28 23:35:03 Doctor Unassigned, No [facility] DIAGNOSIS AND TREATMENT Name Medical Branch Encounters Start End Encounter Admission Attending Care Care Encounter Source Date/Time Date/Time Type Type Clinicians Facility Department ID 2022-05-24 Outpatient [facility] [id number] Common 14:07:02 [id number] [facility] 2022-04-24 Outpatient [facility] [id number] Common 07:45:01 [id number] [facility] 2021-08-09 Outpatient [facility] [id number] [facility] 14:01:00 [id number] [place] [facility]09 Outpatient STLMLC STLMLC [id number] Common 13:58:42 [id number] [facility] 2021-08-09 Outpatient STLMLC STLMLC [id number] Common 11:27:14 [id number] [facility] 2022-02-28 2022-02-28 OFFICE STLMLC STLMLC [id number] Co mmon 00:00:00 00:00:00 VISIT Spirit ESTAB PT - [facility] LEVEL 4 [facility] 2022-02-22 2022-02-22 (TEL) STLMLC STLMLC [id number] Co mmon 00:00:00 00:00:00 [facility] 2022-01-31 2022-01-31 OFFICE STLMLC STLMLC [id number] Co mmon 00:00:00 00:00:00 VISIT EST Spir it PT LEVEL 3 - [facility] 2022-01-28 2022-01-28 Emergency Critical access hospital [id number] [facility] 18:42:00 21:45:00 Don Chicas [place] [id number] [facility] [id number] [facility] [id number] [place] [id number] [place] 2022-01-28 2022-01-28 Emergency [facility] E[facility] [id number] Univers 18:42:00 21:45:[address] [facility] 2022-01-16 2022-01-16 OFFICE STLMLC STLMLC [id number] Co mmon 00:00:00 00:00:00 VISIT [facility] ESTAB PT - [facility] LEVEL 1 [facility] 2022-01-09 2022-01-09 ([place]) Nurse STLMLC STLMLC [id number] Common 00:00:00 00:00:00 Visit [facility] 2022-01-02 2022-01-02 OFFICE STLMLC STLMLC [id number] Co mmon 00:00:00 00:00:00 VISIT Spirit ESTAB PT - [facility] LEVEL 1 [facility] 2021-12-20 2021-12-20 ([place]) Nurse STLMLC STLMLC [id number] Common 00:00:00 00:00:00 Visit [facility] 2021-12-12 2021-12-12 ([place]) Nurse STLMLC STLMLC [id number] Common 00:00:00 00:00:00 Visit [facility] 2021-12-05 2021-12-05 OFFICE STLMLC STLMLC [id number] Co mmon 00:00:00 00:00:00 VISIT [facility] PT - [facility] LEVEL 1 [facility] 2021-11-28 2021-11-28 ([place]) Nurse STLMLC STLMLC [id number] Common 00:00:00 00:00:00 Visit [facility] 2021-11-21 2021-11-21 ([place]) Nurse STLMLC STLMLC [id number] Common 00:00:00 00:00:00 Visit [facility] 2021-11-14 2021-11-14 ([place]) Nurse STLMLC STLMLC [id number] Common 00:00:00 00:00:00 Visit [facility] 2021-11-07 2021-11-07 ([place]) Nurse STLMLC STLMLC [id number] Common 00:00:00 00:00:00 Visit [facility] 2021-10-31 2021-10-31 ([place]) Nurse STLMLC STLMLC [id number] Common 00:00:00 00:00:00 Visit [facility] 2021-10-24 2021-10-24 ([place]) Nurse STLMLC STLMLC [id number] Common 00:00:00 00:00:00 Visit [facility] 2021-06-05 2021-06-05 OFFICE STLMLC STLMLC [id number] Co mmon 00:00:00 00:00:00 VISIT EST Spir it PT LEVEL 3 [facility] 2021-04-11 2021-04-11 (PROC) STLMLC STLMLC [id number] Co mmon 00:00:00 00:00:00 Procedure Spir [facility] 2021-04-04 2021-04-04 OFFICE STLMLC STLMLC [id number] Co mmon 00:00:00 00:00:00 VISIT EST Spir it PT LEVEL 3 [facility] 2020-12-28 2020-12-28 Outpatient STLMLC STLMLC [id number] Common 00:00:00 00:00:00 [facility] 2020-07-27 2020-07-27 Outpatient STLMLC STLMLC [id number] Common 00:00:00 00:00:00 [facility] 2020-04-26 2020-04-26 Outpatient STLMLC STLMLC [id number] Common 00:00:00 00:00:00 [facility] 2020-04-13 2020-04-13 Outpatient STLMLC STLMLC [id number] Common 00:00:00 00:00:00 [facility] 2020-01-26 2020-01-26 [facility] [id number] Common 15:27:00 15:27:00 t Specialty/U Sp xavi Specialty rology - [facility] 2020-01-18 2020-01-18 [facility] [id number] Common 13:32:00 13:32:00 t Specialty/U Sp xavi Specialty rology - [facility] 2020-01-14 2020-01-14 [facility] [id number] Common 14:30:00 14:30:00 t Specialty/U Sp xavi Specialty rology - [facility] 2020-01-11 2020-01-11 [facility] [id number] Common 14:45:00 14:45:00 t Specialty/U Sp xavi Specialty rology - [facility] 2019-12-31 2019-12-31 [facility] [id number] Common 09:15:00 09:15:00 t Specialty/U Sp xavi Specialty rology - [facility] Results This patient has no known results.
[2022-08-05 01:04] LABS: Absolute Lymphocytes (CBC) 2.8 K/uL (0.7-4.9); Hematocrit 48.7 % (39.6-49.0); Lymphocytes % 33.5 % (15.3-44.8); MCV 89.9 fL (80-100); MPV 8.2 fL (7.6-11.3); RBC Red Blood Cell Count 5.42 M/uL (4.33-5.43)
[2022-08-05 01:15] LABS: Albumin 3.6 g/dL (3.4-5.0); Bilirubin Total 0.5 mg/dL (0.2-1.0); Magnesium 2.1 mg/dL (1.6-2.4); Potassium 3.8 mmol/L (3.5-5.1); Protein, Total 6.9 g/dL (6.4-8.2); Troponin High Sensitivity 9.9 pg/mL (<58.9)
--- NOTE | 2022-08-05 02:10 | ER ---
Nurse's Notes [facility] Name: Olu Ware Age: 62 yrs Sex: Male : 1960 Arrival Date: 08/05/2022 Time: 00:15 Bed 4 Private MD: Diagnosis: Near syncope Presentation: 08/05 01:18 Chief complaint: Patient states: "I felt fluttering in my chest. I used a [employer] tw5 device and it showed that I had a fib with a rate of 181.". Coronavirus screen: Vaccine status: Patient reports receiving the 2nd dose of the covid vaccine. aCon. Ebola Screen: Patient negative for fever greater than or equal to 101.5 degrees Fahrenheit, and additional compatible Ebola Virus Disease symptoms Patient denies exposure to infectious person. Patient denies travel to an Ebola-affected area in the 21 days before illness onset. Initial Sepsis Screen: Does the patient meet any 2 criteria? No. Patient's initial sepsis screen is negative. Does the patient have a suspected source of infection? No. Patient's initial sepsis screen is negative. Risk Assessment: Do you want to hurt yourself or someone else? Patient reports no desire to harm self or others. Onset of symptoms was August 04, 2022 at 22:00. 01:18 Method Of Arrival: Wheelchair tw5 01:18 Acuity: MACHO 2 tw5 Triage Assessment: 01:19 General: Appears in no apparent distress. Behavior is calm, cooperative, appropriate tw5 for age. Pain: Denies pain. Historical: - Allergies: :19 PENICILLINS; tw5 - PMHx: :19 Atrial Fib; Diabetes - NIDDM; Sleep Apnea; tw5 - PSHx: :19 None; tw5 - Immunization history:: Flu vaccine is not up to date. - Social history:: Smoking status: Patient denies any tobacco usage or history of. Screenin:29 [facility] ED Fall Risk Assessment (Adult) History of falling in the last 3 months, aa9 including since admission No falls in past 3 months (0 pts) Confusion or Disorientation No (0 pts) Intoxicated or Sedated No (0 pts) Impaired Gait No (0 pts) Mobility Assist Device Used No (0 pt) Altered Elimination No (0 pt) Score/Fall Risk Level 0 - 2 = Low Risk. Abuse screen: Denies threats or abuse. Denies injuries from another. Nutritional screening: No deficits noted. Tuberculosis screening: No symptoms or risk factors identified. Assessment: 00:28 General: Appears in no apparent distress. comfortable, Behavior is cooperative, aa9 appropriate for age, anxious. Pain: Denies pain. Neuro: Level of Consciousness is awake, alert, obeys commands, Oriented to person, place, time, situation. Cardiovascular: Patient's skin is warm and dry. Rhythm is regular. Respiratory: Airway is patent Respiratory effort is even, unlabored. GI: Reports diarrhea, flatulence, gaseousness, Patient currently denies abdominal pain. GI: Abdomen is round. : No signs and/or symptoms were reported regarding the genitourinary system. EENT: No signs and/or symptoms were reported regarding the EENT system. Derm: Skin is intact, is healthy with good turgor. Musculoskeletal: No signs and/or symptoms reported regarding the musculoskeletal system. 02:01 Reassessment: Patient appears in no apparent distress at this time. Patient and/or aa9 family updated on plan of care and expected duration. Pain level reassessed. Patient is alert, oriented x 3, equal unlabored respirations, skin warm/dry/pink. 02:12 Pain: Pain does not radiate. aa9 02:12 Pain: Pain began gradually. aa9 Vital Signs: 01:18 BP 137 / 88; Pulse 98; Resp 18; Temp 96.8; Pulse Ox 98% ; Pain 0/10; tw5 01:19 Weight 99.79 kg (R); Height 5 ft. 11 in. (180.34 cm); aa9 01:30 BP 121 / 76; Pulse 96; Resp 20 S; Pulse Ox 95% on R/A; aa9 02:13 Pulse 95; Resp 17 S; Pulse Ox 96% on R/A; as6 01:19 Body Mass Index 30.68 (99.79 kg, 180.34 cm) aa9 ED Course: 00:15 Patient arrived in ED. jj6 00:16 Andrew Reed, KRYSTIAN is Primary Nurse. as6 00:20 Immanuel Cruz MD is Attending Physician. rt 00:30 Placed in gown. Bed in low position. Call light in reach. Side rails up X2. Adult w/ aa9 patient. Client placed on continuous cardiac and pulse oximetry monitoring. NIBP monitoring applied. 00:53 Inserted saline lock: 20 gauge in right forearm, using aseptic technique. Blood as6 collected. Patient maintains SpO2 saturation greater than 95% on room air. 01:19 Triage completed. tw5 01:19 Arm band placed on Patient placed in an exam room. tw5 01:20 No provider procedures requiring assistance completed. tw5 01:33 Chest Single View XRAY In Process Unspecified. EDMS 02:14 IV discontinued, intact, bleeding controlled, No redness/swelling at site. Pressure as6 dressing applied. Administered Medications: No medications were administered Medication: 02:12 VIS not applicable for this client. aa9 Outcome: 02:09 Discharge ordered by . rt 02:12 Condition: stable aa9 02:14 Discharged to home ambulatory, with significant other. as6 02:14 Discharge instructions given to patient, significant other, Instructed on discharge instructions, follow up and referral plans. Demonstrated understanding of instructions, follow-up care. 02:14 Patient left the ED. as6 Signatures: Dispatcher [employer] EDGA Emi Zapata tw5 Arina Youngj6 Andrew Reed, KRYSTIAN RN as6 Jany Chávez RN RN aa9 Immanuel Cruz MD MD rt
--- NOTE | 2022-08-05 02:10 | EDPHYS ---
Physician Documentation [facility] Name: Olu Ware Age: 62 yrs Sex: Male : 1960 Arrival Date: 08/05/2022 Time: 00:15 Bed 4 Private MD: ED Physician Immanuel Cruz HPI: 08/05 02:26 This 62 yrs old Male presents to ER via Wheelchair with complaints of Dizziness, rt Irregular Pulse. 02:26 The patient presents with lightheadedness. Onset: The symptoms/episode began/occurred rt this morning. Patient with history of A. fib presents to the ED with intermittent episodes of lightheadedness starting this morning. Patient states that he believe that he may been in A. fib, he has a history of paroxysmal A. fib. He is currently taking medications for atrial fibrillation. He states that the symptoms have since resolved and he is asymptomatic in the ED. Denies other acute complaints at this time including chest pain. Symptoms are moderate in severity, no other aggravating or leading factors.. Historical: - Allergies: 01:19 PENICILLINS; tw5 - PMHx: 01:19 Atrial Fib; Diabetes - NIDDM; Sleep Apnea; tw5 - PSHx: 01:19 None; tw5 - Immunization history:: Flu vaccine is not up to date. - Social history:: Smoking status: Patient denies any tobacco usage or history of. ROS: 02:26 Constitutional: Negative for fever, chills, and weight loss, Eyes: Negative for injury, rt pain, redness, and discharge, Cardiovascular: Negative for chest pain, palpitations, and edema, Respiratory: Negative for shortness of breath, cough, wheezing, and pleuritic chest pain, Abdomen/GI: Negative for abdominal pain, nausea, vomiting, diarrhea, and constipation, MS/Extremity: Negative for injury and deformity, Skin: Negative for injury, rash, and discoloration, Neuro: Negative for headache, weakness, numbness, tingling, and seizure, Psych: Negative for depression, anxiety, suicide ideation, homicidal ideation, and hallucinations. 02:26 Neuro: Positive for near syncope, Negative for loss of consciousness. Exam: 02:26 Constitutional: This is a well developed, well nourished patient who is awake, alert, rt and in no acute distress. Head/Face: Normocephalic, atraumatic. Eyes: Pupils equal round and reactive to light, extra-ocular motions intact. Lids and lashes normal. Conjunctiva and sclera are non-icteric and not injected. Cornea within normal limits. Periorbital areas with no swelling, redness, or edema. Chest/axilla: Normal chest wall appearance and motion. Nontender with no deformity. No lesions are appreciated. Cardiovascular: Regular rate and rhythm with a normal S1 and S2. No gallops, murmurs, or rubs. Normal PMI, no JVD. No pulse deficits. Respiratory: Lungs have equal breath sounds bilaterally, clear to auscultation and percussion. No rales, rhonchi or wheezes noted. No increased work of breathing, no retractions or nasal flaring. Abdomen/GI: Soft, non-tender, with normal bowel sounds. No distension or tympany. No guarding or rebound. No evidence of tenderness throughout. Skin: Warm, dry with normal turgor. Normal color with no rashes, no lesions, and no evidence of cellulitis. MS/ Extremity: Pulses equal, no cyanosis. Neurovascular intact. Full, normal range of motion. Neuro: Awake and alert, GCS 15, oriented to person, place, time, and situation. Cranial nerves II-XII grossly intact. Motor strength 5/5 in all extremities. Sensory grossly intact. Cerebellar exam normal. Normal gait. Psych: Awake, alert, with orientation to person, place and time. Behavior, mood, and affect are within normal limits. 02:26 ECG was reviewed by the Attending Physician. Vital Signs: 01:18 BP 137 / 88; Pulse 98; Resp 18; Temp 96.8; Pulse Ox 98% ; Pain 0/10; tw5 01:19 Weight 99.79 kg (R); Height 5 ft. 11 in. (180.34 cm); aa9 01:30 BP 121 / 76; Pulse 96; Resp 20 S; Pulse Ox 95% on R/A; aa9 02:13 Pulse 95; Resp 17 S; Pulse Ox 96% on R/A; as6 01:19 Body Mass Index 30.68 (99.79 kg, 180.34 cm) aa9 MDM: 00:28 Patient medically screened. rt 02:28 Differential diagnosis: cardiac arrhythmia, generalized weakness, near-syncope. Data rt reviewed: vital signs, nurses notes, lab test result(s), EKG, radiologic studies. Independent interpretation of the following test(s) in the Emergency Department panel monitor: rate is 92 beats/min, Rhythm is normal sinus rhythm, with no ectopy, Interpretation: normal rate, normal rhythm, Rhythm Strip Interpretation. Test considered but Not performed: Other Details Signs to suggest focal neurologic process, CT scan not indicated.. Counseling: I had a detailed discussion with the patient and/or guardian regarding: the need for outpatient follow up, a roof service technician, to return to the emergency department if symptoms worsen or persist or if there are any questions or concerns that arise at home. 08/05 00:34 Order name: CBC with Diff; Complete Time: rt 08/05 00:34 Order name: CMP; Complete Time: rt 08/05 99:34 Order name: Chest Single View XRAY rt 08/05 00:34 Order name: Magnesium; Complete Time: rt 08/0534 Order name: Troponin High Sensitivity; Complete Time: rt 08/05 00:34 Order name: BNP; Complete Time: rt EC:26 Rate is 95 beats/min. Rhythm is regular, Normal Sinus Rhythm with No ectopy. QRS Bruno rt is Normal. GA interval is normal. QRS interval is normal. QT interval is normal. No Q waves. T waves are Normal. No ST changes noted. Interpreted by me. Administered Medications: No medications were administered Disposition Summary: 08/05/22 02:09 Discharge Ordered Location: Home rt Problem: new rt Symptoms: are resolved rt Condition: Stable rt Diagnosis - Near syncope rt Followup: rt - With: Private Physician - When: 2 - 3 days - Reason: Discharge Instructions: - Discharge Summary Sheet rt - Near-Syncope rt Forms: - Medication Reconciliation Form rt - Thank You Letter rt - Antibiotic Education rt - Prescription Opioid Use rt Signatures: Dispatcher [employer] Emi Mcmillan tw5 Immanuel Cruz MD MD rt
[2022-08-05 04:49] VITALS: TEMP 96.8
[2022-08-05 04:51] VITALS: BP 121/76
[2022-08-05 04:52] VITALS: O2SAT 96
--- NOTE | 2022-08-06 16:07 | RAD REPORT ---
EXAM DESCRIPTION: Chest Single View 08/05/2022 1:40 AM PET TECHNOLOGIST CLINICAL HISTORY: 62 years, Male, near syncope COMPARISON: None. FINDINGS: Single view of the chest was obtained portable. No prior films are available for compariso n. External EKG leads within the [id number] limits diagnosis. The cardiomediastinal silhouette dem onstrate to be unremarkable. The heart is not enlarged. The thoracic aorta is unremarkable. The pulmo nary vasculature is normal distribution. Costophrenic angles are sharp. No areas of consolidation o r masses are seen. The rest of the soft tissue and bony structures demonstrate to be unremarkable. IMPRESSION: No acute cardiopulmonary disease seen. Electronically signed by: Santosh Astorga MD 08/05/2022 1:40 AM PET TECHNOLOGIST Due to temporary technical issues with the PACS/Fluency reporting system, reports are being signed by the in house radiologists without review as a courtesy to insure prompt reporting. The interpreting radiologist is fully responsible for the content of the report
--- NOTE | 2022-08-06 16:53 | EKG ---
Test Date: 2022-08-05 Test Time: 00:25:23 Post Acute Care Nurse: ANNE MARIE MEASUREMENT RESULTS: Intervals: Rate: 95 VT: 168 QRSD: 96 QT: 366 QTc: 459 Dupont: P: 59 VT: 168 QRS: 32 T: 28 INTERPRETIVE STATEMENTS: Normal sinus rhythm Normal ECG No previous ECG available for comparison Electronically Signed On 08-06-22 16:50:48 [employer] LO[employer]ER AND UNLOADER by Steffen Stroud
== END 2022-08-05 02:14 | disposition home or self-care (01) ==
LOC: ER 00:13
DX: R55 Syncope and collapse (principal); I48.91 Unspecified atrial fibrillation; Z88.0 Allergy status to penicillin
CPT/HCPCS: 36415; 71045; 80053; 83735; 83880; 84484; 85025; 93005; 99284